=== PATIENT | female | born 1980 | race Caucasian/White ===

== ENCOUNTER 2018-11-15 07:43 | Emergency (ER) | payer MEDICAID ==
[~2018-11-15] VITALS: Ht 149.9 cm; Wt 78.5 kg
[2018-11-15 07:51] VITALS: BP 119/73
--- NOTE | 2018-11-15 08:19 | NUR ---
38 Y/O FEMALE C/O LUQ 10/ UNPROVOKED, ACUTE, AND INTERMITTENT PAIN. SHE STATES THAT SHE NAUSEA WITH VOMITING X1. ABDOMEN IS SOFT, TENDER TO TOUCH, BOWEL SOUNDS ARE HEARD ON UPPER AND LOWER QUADRANTS. PMH: DENIES ALLERGIES: DENIES RX: NONE
[2018-11-15] MEDS ORDERED: DICYCLOMINE HCL LIQUID 10 MG/5 ML UDC PO ONE (08:30)
[2018-11-15] MEDS ORDERED: LIDOCAINE VISCOUS 2% 20 ML UDC PO ONE (08:30)
[2018-11-15] MEDS ORDERED: ALUMINUM HYD/MAG/SIMETHICONE 30 ML UDC PO ONE (08:30)
[2018-11-15 09:17] VITALS: BP 108/68
--- NOTE | 2018-11-15 09:17 | NUR ---
Patient discharged with v/s stable. Written and verbal after care instructions given and explained. Patient alert, oriented and verbalized understanding of instructions. Ambulatory with steady gait. All questions addressed prior to discharge. ID band removed. Patient advised to follow up with PMD. Rx of OMEPRAZOLE given. Patient educated on indication of medication including possible reaction and side effects. Opportunity to ask questions provided and answered.
== END 2018-11-15 09:17 | disposition home or self-care (01) ==
LOC: MED 07:43
DX: K29.70 Gastritis, unspecified, without bleeding (principal)
CPT/HCPCS: 81002; 81025; 99283

== ENCOUNTER 2020-07-02 11:16 | Emergency (ER) | payer MEDICAID ==
[~2020-07-02] VITALS: Ht 157.5 cm; Wt 74.8 kg
[2020-07-02 11:18] VITALS: BP 137/82
[2020-07-02 12:15] LABS: BASOPHILS % (AUTO) 0.3 % (0.0-2.0); EOSINOPHILS # (AUTO) 0.2 K/uL (0-0.4); EOSINOPHILS % (AUTO) 2.4 % (0.0-4.0); HEMATOCRIT 36.1 % (36-48); HEMOGLOBIN 11.9 g/dL (12.0-16.0); LYMPHOCYTES # (AUTO) 1.7 K/uL (2.5-16.5); LYMPHOCYTES % (AUTO) 24.6 % (20.5-51.1); MEAN CORPUSCULAR HEMOGLOBIN 29 pg (27-31); MEAN CORPUSCULAR HGB CONC 33 g/dL (33-37); MEAN CORPUSCULAR VOLUME 87.4 fL (80-94); MONOCYTES # (AUTO) 0.5 K/uL (0.8-1.0); MONOCYTES % (AUTO) 7.4 % (1.7-9.3); NEUTROPHILS # (AUTO) 4.5 K/uL (1.8-7.7); NEUTROPHILS % (AUTO) 65.3 % (42.2-75.2); PLATELET COUNT (AUTO) 294 K/uL (140-450); RED BLOOD CELL COUNT(AUTO) 4.13 MIL/uL (4.20-5.40); RED CELL DISTRIBUTION WIDTH 12.9 % (11.6-13.7); WHITE BLOOD COUNT (AUTO) 6.9 K/uL (4.8-10.8)
--- NOTE | 2020-07-02 12:22 | NUR ---
PT AMBULATED TO BED 04.
--- NOTE | 2020-07-02 12:24 | NUR ---
40 Y/O FEMALE C/O DIZZINESS X1DAY WITH HEADACHE. PT STATES THE ROOM IS STILL BUT SHE IS SPINNING. PT C/O FATIGUE, HEART PALPATATIONS, WEAKNESS, AND INSOMNIA. PT STATES THAT WHEN SHE WAKES UP, SHE HAS NO ENERGY X6 MOS. PT STATED "I FEEL LIKE IM GOING TO PASS OUT". PT DENIES PAIN AT THIS TIME. DENIES N/V/SOB. PT DENIES FALLING OR LOSING BALANCE. PT AMBULATED TO BED 4 WITH EVEN STEADY GAIT. PT IS A/O X4 WITH EVEN AND UNLABORED RESPIRATIONS. PT IS LAYING IN BED WITH BED IN LOWEST POSITION, BRAKES LOCKED, X1 SIDERAIL UP. PT CONNECTED TO LOAN ADMINISTRATOR. [employer] [employer] SPEAKING DENIES PMH NKA
[2020-07-02 12:29] LABS: ANION GAP 10.4 (8-16); CARBON DIOXIDE 27.5 mmol/L (21-32); CREATININE 0.6 mg/dL (0.6-1.3); POTASSIUM 3.9 mmol/L (3.5-5.1)
--- NOTE | 2020-07-02 12:55 | NUR ---
DR SERRA AT BEDSIDE
[2020-07-02 14:06] VITALS: BP 137/82
--- NOTE | 2020-07-02 14:07 | NUR ---
Patient discharged with v/s stable. Written and verbal after care instructions given and explained. Patient verbalized understanding. Ambulatory with steady gait. All questions addressed prior to discharge. Advised to follow up with PMD.
== END 2020-07-02 14:07 | disposition home or self-care (01) ==
LOC: MED 11:16
DX: R53.1 Weakness (principal); R42 Dizziness and giddiness; R51.9 Headache, unspecified
CPT/HCPCS: 36415; 80048; 84484; 85025; 93005; 99284